=== PATIENT | female | born 1940 | race Asian ===

== ENCOUNTER 2018-07-20 06:05 | Day surgery (SDC) | payer BC, OTHER ==
[2018-07-15 14:00] VITALS: BMI 26.9
[2018-07-20] MEDS ORDERED: OXYMETAZOLINE 0.05% NASAL SOLUTION 15 ML BOTTLE NS ONE (07:14)
[2018-07-20] MEDS ORDERED: ERYTHROMYCIN 0.5% OPHTHALMIC OINTMENT 3.5 GM TUBE ONE (07:14)
[2018-07-20] MEDS ORDERED: TETRACAINE 0.5% OPHTH SOLN 2 ML BOTTLE ONE (07:15)
[2018-07-20] MEDS ORDERED: LIDOCAINE 1%/EPI 1:100000 (20 ML MULTI DOSE VIAL) ONE (07:15)
[2018-07-20] MEDS ORDERED: BUPIVACAINE HCL/PF 0.5% (5MG/ML) 10 ML VIAL ONE (07:15)
[2018-07-20] MEDS ORDERED: THROMBIN (BOVINE) 5,000 UNIT VIAL TP ONE (07:15)
[2018-07-20] MEDS ORDERED: POVIDONE-IODINE 5% OPHTHALMIC PREP 30 ML SOLUTION ONE (07:15)
[2018-07-20] MEDS ORDERED: GELATIN, ABSORBABLE 100 EACH SPONGE TP ONE (07:15)
[2018-07-20] MEDS ORDERED: MIDAZOLAM HCL 2 MG/2 ML SINGLE DOSE VIAL ONE (07:25)
[2018-07-20] MEDS ORDERED: PROPOFOL 20 ML ONE ×2 (07:25→09:02)
[2018-07-20] MEDS ORDERED: SUCCINYLCHOLINE CHLORIDE 200 MG/10 ML VIAL ONE (07:25)
[2018-07-20] MEDS ORDERED: DEXAMETHASONE SOD PHOSPHATE 4 MG/1 ML VIAL ONE (07:28)
[2018-07-20] MEDS ORDERED: ONDANSETRON 4 MG/2 ML VIAL ONE (07:28)
[2018-07-20] MEDS ORDERED: LIDOCAINE HCL/PF 2% SDV 5ML VIAL ONE (07:28)
[2018-07-20] MEDS ORDERED: ceFAZolin SODIUM 1 GM VIAL ONE (07:28)
[2018-07-20] MEDS ORDERED: ePHEDrine SULFATE 50 MG/1 ML AMPULE ONE (08:05)
[2018-07-20 10:34] VITALS: TEMP 97.6
[2018-07-20] MEDS ORDERED: ACETAMINOPHEN 500 MG TABLET (FP) ONE (11:01)
[2018-07-20 11:19] VITALS: PULSE 76
[2018-07-20 11:46] VITALS: BP 144/63
--- NOTE | 2018-07-20 11:49 | OP ---
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 ANESTHESIA: General LMA. COMPLICATIONS: Tissue found filling the entire lacrimal sac prompting frozen section submission to Pathology. Extensive ford-white tissue filling the lacrimal sac and also seen within the superficial layers of the tissue dissection en route to the lacrimal sac. PROCEDURE: 1. Dacryocystorhinostomy, right. 2. Silicone intubation, right. 3. Lacrimal sac biopsy for fresh and permanent sections, right. 4. Partial ethmoidectomy, right. 5. Silicone intubation of right lacrimal system. 6. Partial middle turbinectomy, right. 7. Endoscopy, right. SURGEON: Anastasiia Abraham MD ESTIMATED BLOOD LOSS: 10-20 mL. OPERATION REPORT: Patient was brought to the operating room, placed on the operating room table. Vital signs monitored by Anesthesia. Tetracaine was placed in both eyes. The patient was placed under LMA anesthesia. Line was marked in the right tear trough. A time-out was then performed. After which, a 50/50 mixture of 2% Xylocaine with 1:100,000 epinephrine and 0.5% Marcaine was injected around the tear trough and the nasal third of the upper and lower lids dorsally as well as laterally, infraorbital neurovascular bundle, and then under direct visualization of the middle turbinate and the lateral wall of the nose were injected, as well with 2% Xylocaine with 1:100,000 epinephrine. It should be noted that the inferior turbinates were noted to be enlarged bilaterally in the office on the preoperative exam. The right naris was then packed with Cottonoids moistened with Afrin. The patient was prepped and draped in the usual sterile fashion exposing both eyes and the nose. The left eye was taped closed with Steri-Strips. Procedure was then performed. Incision was made in the previously marked tear trough, carried down through the skin and subcutaneous tissue. Gentle spreading with a Hawkins scissors, then noted, diffuse white material infiltrating the tissues below the plane of the orbicularis. Dissection was carried down to the orbital rim. 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 The medial canthal tendon was presumed to be identified. However, it was also quite thickened and appeared to be infiltrated with a tissue. All of this tissue was sent for biopsy, and then, the periosteum was incised, and then, the lacrimal sac was reflected laterally exposing lacrimal sac fossa, which was not penetrated at this time, but was exposed back to the maxillary lacrimal long suture. The lacrimal sac was then opened on its medial surface with a 12 blade, and there was never any exudative pus or purulence from his punctate or from the sac. Once the sac was opened, the luther were seen to be diffusely thickened as if they were infiltrated with a ford-white substance, and the sac itself seemed to be filled with this substance, this tissue, as well, suggesting the possibility of a malignancy, either squamous cell or lymphoid. Anterior and posterior lacrimal sac flaps were created, and these were quite thick, and the sac was biopsied, and the thickened medial canthal tendon was biopsied, the sac was biopsied, and this was sent for frozen section study. Frozen section study was reviewed with the pathologist and found to have a dense lymphoid type of cell proliferation associated with some significant amount of fibrosis. The possibility of lymphoma was raised as well as dense reactive lymphoid hyperplasia. As it was noted that this patient would not be requiring further extensive extubation of the tumor, i.e. exenteration, decision was made to proceed with the surgery, and therefore, the lacrimal bone was penetrated with a hemostat and upbiting Kerrison rongeurs were used to create an osteotomy from the medial canthal tendon to the nasolacrimal duct. All the bone was submitted, as well. Nasal mucosa was seen to be thickened. This was injected with 2% Xylocaine with 1:100,000 epinephrine, and then, an anterior nasal mucosal flap was created with relaxing incisions. This was also sent for biopsy. Partial ethmoidectomy was performed as the ethmoid was at the posterior extent of this osteotomy, and this was sent for biopsy, as well. This was performed with TrenDemon forceps. The upper and lower puncta were dilated, intubated with probes, and after some manipulation, each lower probe were passed through the same area, which appeared to be the internal common canaliculus, and internal common canaliculoplasty was performed relieving any scar tissue in this area, allowing the probes to pass freely. The head of the middle turbinate was seen to be encroaching on the osteotomy, and therefore, the head of the middle turbinate was excised with Jerry scissors and alligator forceps, and also submitted for pathologic study. Hemostasis was achieved with cautery and packed with Cottonoids and moistened with thrombin. The system was intubated with Arizmendi probes, which were retrieved through the right external naris with a Arizmendi hook. The anterior lacrimal sac flap, which was quite thickened, but had been created with relaxing incisions was now sutured to the anterior nasal mucosal flap with interrupted and mattress 4-0 chromic sutures. The skin was closed in a plastic technique with and subcuticular 5-0 chromic, and then, the skin itself was closed with running 6-0 plain suture with plastic technique. Stents were removed from the probe. Stents were tied with locking knots and secured to the right external naris with a single 6-0 Prolene suture with minimal tension on the left and right medial canthus. The endoscope was introduced demonstrating good clearance of the front of the turbinate symptom from the internal ostium which was opened. Good hemostasis. It should be noted that both sides of the interior turbinate seemed to be thickened and somewhat ratty, and there also appeared to be thickening and whitish elevation of tissue along the septum on the right side. This was documented endoscopically. Afrin was sprayed in the nose, erythromycin ointment was placed on the sutures, and the patient was taken to the recovery room after being awakened from anesthesia in stable condition. ANASTASIIA ABRAHAM M.D. [id number]
--- NOTE | 2018-07-29 14:45 | PATH ---
Surgical Pathology Report Patient Name: LELA TERRELL [facility]. Rec. #: [id number] /Age/Gender: 1940 (Age: 77) / F Account: [id number] Location: [facility] Taken: 07/20/2018 Received: 07/20/2018 Reported: 07/29/2018 Physicians: Henri Abraham Specimen(s) Received A: RIGHT MEDIAL CANTHUS ABSCESS VS. TUMOR F.S. B: RIGH LACRIMAL SAC R/O LYMPHOMA/FLOW CYTOMETRY-FRESH C: POSTERIOR WALL RIGHT LACRIMAL SAC FLOW CYTOMETRY-FRESH D: RIGHT NASAL MUCOSA E: RIGHT TURBINATE F: RIGHT MEDIAL CANTHUS TENDON G: RIGHT ETHMOID TISSUE H: RIGHT NASAL MUCOSA I: RIGHT LACRIMAL SAC Clinical History Blocked right tear duct Intraoperative Consult Diagnosis A. Right medial canthus,frozen section: Lymphoproliferative process. Defer to permanents and flow cytometry for final diagnosis. B. Right lacrimal sac: Tissue saved in RPMI for flow cytometry/lymphoma workup. C. Posterior wall right lacrimal sac: Tissue saved in RPMI for flow cytometry/lymphoma workup D. Right nasal mucosa: For permanent sections (discussed with surgeon). E. Right turbinate: For permanent sections (discussed with surgeon). Final Diagnosis A.RIGHT MEDIAL CANTHUS, D. RIGHT NASAL MUCOSA, E. RIGHT TURBINATE, F. RIGHT MEDIAL CANTHUS TENDON, H. RIGHT NASAL MUCOSA, I. RIGHT LACRIMAL SAC: These specimens were sent to [facility], [place], [place] for ancillary studies and consultation and the following report was rendered there by Dr. Umberto Bass (see also complete [facility] Report [id number]): "SUBOPTIMAL SPECIMEN FOR EVALUATION OF LYMPHOMA (SEE COMMENT)." Comment: Three fragments of tissue are fibrotic with what appears to be a proliferation of lymphocytes. However due to marked crush and preservation artifact, essentially no intact cells or architecture is evaluable. If clinically indicated, a re-biopsy with attempts at larger amounts of tissue may be helpful. Microscopic description: Sections of blocks D, E and H show small fragments of sinonasal mucosa with mild chronic inflammation. Sections of blocks A,F and I show fibrotic tissue with crushed cells, presumably lymphocytes. No morphology can be assessed due to the extensive crush artifact and poor preservation of cellular structure. In addition, block A was previously frozen. Immunohistochemical stains for CD20 and CD3 are performed on block I. They show a mixed population of crushed B and T cells. Additional immunohistochemical stains are performed on block F. Stains for CD20 and CD3 show a predominance of crushed B cells. However, stains for CD10, BCL-6, Cyclin D1, CD21, CD23 and CD138 are essentially negative. It is unclear whether this is due to true negativity or artifact from the disrupted cells. A stain for BCL-2 appears negative in the B-cell areas, but is equivocal due to high background staining. A stain for CD5 is similar to CD3. In-situ hybridization for [place] and Lambda light chains is also negative. B,C. RIGHT LACRIMAL SAC AND POSTERIOR WALL RIGHT LACRIMAL SAC, FRESH TISSUE FOR FLOW CYTOMETRY: RESULTS OF FLOW CYTOMETRIC ANALYSIS PERFORMED AT [facility], [place], [place] ARE FOLLOWS: INTERPRETATION: NON-DIAGNOSTIC SPECIMEN. Comment: The number of cellular events was very low. In addition, results are listed for viable cells; however, the viability of the specimen was low. Therefore results should be interpreted with caution due to the possibility of selective loss of the population(s) of interest. Viability: 71% Phenotype: No definitive CD20+ B-cells are detected. Very rare CD3+ T-cells are present. See also complete [facility] flow cytometry report [id number]. G. ETHMOID TISSUE, RIGHT, BIOPSY: BONE WITH NO PATHOLOGIC FINDINGS. Note: Case was discussed with on 07/27/18; Final [facility] report was faxed to ' office on 07/29/18. Electronically Signed Malgorzata Krishna M.D. Addendum Reported: 08/27/2018 Addendum Diagnosis Per request by , the case was sent to Dr. Jumana Espana at [facility], [place], [place], where the following diagnosis was rendered (see also complete [facility] report : [id number])): Diagnosis: A. Medial canthus, right, biopsy: - Infiltrate of small round blue cells in a background of fibrosis and crush artifact (see microscopic description and comment). D. Nasal mucosa, right, biopsy: - Nasal mucosa with thickened basement membrane, fibrosis, and a mixed chronic inflammatory infiltrate. - [place] red stain for amyloid is negative. E. Turbinate, right, biopsy: - Turbinate mucosa with thickened basement membrane and mixed chronic lymphoplasmacytic inflammatory infiltrate with fibrosis. - [place] red stain for amyloid is negative. F. Medial canthus tendon, right, biopsy: - Segment of fibrous tissue with a dense B cell dominant lymphoid infiltrate and extensive crush artifact (see microscopic description and comment). H. Nasal mucosa, right, biopsy: - Nasal mucosa with thickened basement membrane, mixed chronic inflammation with fibrosis, and reactive bone fragment. - Congo red stain for amyloid is negative. I. Lacrimal sac, right, biopsy: - Small segment of fibrous tissue with a mixed small lymphoid cell infiltrate (see microscopic description). Microscopic description: A. (Tissue submitted for frozen section) the sections an intense diffuse infiltrate of small cells with basophilic mildly pleomorphic nuclei, scant cytoplasm, and prominent crush artifact in a background of fibrosis and few skeletal muscle fibers. F. The sections demonstrate a segment of fibrous tissue with a dense diffuse infiltrate of small, mostly crushed cells with hyperchromatic nuclei and scant cytoplasm. Submitted for review immunohistochemical stains, performed with adequate controls, show a B cell dominant lymphoid infiltrate (70-80%) which is positive for CD20 and negative for CD5, CD10, CD23, and BCL6. No definitive co-expression of BCL2 is identified. T cells (20-30%) express CD3, CD5, and BCL2. In situ hybridization studies for lambda and kappa light chains are negative. A limited panel of immunohistochemical stains was performed on the submitted block, which similarly shows a CD20 dominant B cell infiltrate, which does not co-express BCL2. I. The sections demonstrate a small tissue fragment with a diffuse infiltrate of small lymphoid cells in a background of fibrosis. CD3 and CD20 immunostains submitted for review with appropriate controls highlight the mixed nature of the lymphoid infiltrate with approximately equal number of B cells and T cells. Immunohistochemical stains for cytokeratins, performed with adequate controls (see disclaimer) on the submitted block are negative. Comment: Per report, flow cytometry analysis on specimens B (right lacrimal sac) and C (posterior wall right lacrimal sac) was limited by low number of cellular events. No definitive CD20+ B cells were detected. Very rare CD3+ T cells were present. Viability was 71%. We agree with the interpretation rendered at the [facility]. 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 Although no definitive malignancy is identified, the B cell dominant nature of lymphoid infiltrate in specimen F is atypical. Additionally, tissue freezing precludes reliable immunohistochemical assessment of specimen A. Crush artifact similarly limits pathologic evaluation. Additional (much less likely) consideration includes metastatic carcinoma in a background of inflammation and fibrosis, which is essentially excluded with negative immunohistochemical stains for cytokeratin. Malgorzata Krishna M.D. Gross Description A. Received fresh for frozen section evaluation, labeled "right medial canthus, abscess versus tumor" is a 0.3 x 0.3 x 0.1 cm portion of pink tissue. Frozen section is performed on the specimen. The frozen section residue is entirely submitted in one cassette. B. Received fresh, labeled, "right lacrimal sac r/o lymphoma" is a 0.3 x 0.2 x 0.1 cm portion of pink tissue. The specimen is placed in RPMI and sent to reference laboratory for flow cytometric analysis. C. Received fresh, labeled "posterior wall right lacrimal sac" is a 0.3 x 0.2 x 0.1 cm portion of pink tissue. The specimen is placed in RPMI and sent to reference laboratory for flow cytometric analysis. D. Received fresh, labeled "right nasal mucosa" is a 0.4 x 0.1 x 0.1 cm portion of pink tissue. Entirely submitted in one cassette. E. Received fresh, labeled "right turbinate" is a 0.5 x 0.4 x 0.2 cm portion of pink tissue. Entirely submitted in one cassette. F. Received in formalin labeled "right medial canthus tendon," is a 0.5 x 0.2 x 0.1 cm [place] soft tissue fragment. The specimen is submitted in toto in one cassette. G. Received in formalin labeled "right ethmoid," is a 0.4 x 0.3 x 0 1 cm in aggregate of [place], hard, possible bone fragments. The specimen is submitted in toto in one cassette, following decalcification. H. Received in formalin labeled "right nasal mucosa," are 2 [place] soft tissue fragments measuring 0.4 and 0.5 cm in greatest dimension. The specimens are submitted in toto in one cassette. I. Received in formalin labeled "right lacrimal sac," is a 0.5 cm in greatest dimension [place] soft tissue fragment. The specimen is submitted in toto in one cassette. DL/07/21/2018 ebram/07/20/2018
== END 2018-07-20 12:18 | disposition home or self-care (01) ==
LOC: FASU 06:05
PROVIDERS: ATTEND Ophthalmology
PROC: 09BU0ZZ Excision of Right Ethmoid Sinus, Open Approach (ICD-10-PCS; 2018-07-20)
PROC: 087X0DZ Dilation of Right Lacrimal Duct with Intraluminal Device, Open Approach (ICD-10-PCS; 2018-07-20)
PROC: 09JY8ZZ Inspection of Sinus, Via Natural or Artificial Opening Endoscopic (ICD-10-PCS; 2018-07-20)
PROC: 081X0Z3 Bypass Right Lacrimal Duct to Nasal Cavity, Open Approach (ICD-10-PCS; principal; 2018-07-20 08:08)
DX: H04.553 Acquired stenosis of bilateral nasolacrimal duct (principal); H02.89 Other specified disorders of eyelid
CPT/HCPCS: 82962; 88300-TC; 88304-TC; 88305-TC; 88331-TC; 94760